=== PATIENT | female | born 1960 ===

== ENCOUNTER 2022-07-29 12:24 | Outpatient (CLI) | payer OTHER ==
[2022-07-29] MEDS ORDERED: CLONAZE PO (14:05)
[2022-07-29] MEDS ORDERED: DOVATO 50-3001 EACH PO (14:05)
[2022-07-29] MEDS ORDERED: [UNRECOGNIZED DRUG - OTHER] PO (14:06)
[2022-07-29] MEDS ORDERED: GABAPENT PO (14:06)
== END 2022-07-29 12:38 | disposition home or self-care (01) ==
LOC: LAB 12:24
PROVIDERS: ATTEND Orthopaedic Surgery Orthopaedic Surgery of the Spine
DX: D68.9 Coagulation defect, unspecified (principal); D64.9 Anemia, unspecified; E03.9 Hypothyroidism, unspecified; R07.9 Chest pain, unspecified